=== PATIENT | male | born 1990 | race African-American/Black ===

== ENCOUNTER 2024-02-23 06:19 | Emergency (ER) | payer MEDICAID ==
[~2024-02-23] VITALS: Ht 177.8 cm; Wt 63.5 kg
[2024-02-23 06:42] VITALS: O2SAT 99
[2024-02-23] MEDS: HYDROCODONE/ACETAMINOPHEN 5/325MG TABLET PO ONE (07:15)
[2024-02-23] MEDS ORDERED: HYDR-4001 MT (07:19)
[2024-02-23] MEDS ORDERED: AMOX-494 MT (07:19)
[2024-02-23 08:35] VITALS: BP 130/65; PULSE 82; RESP 16; TEMP 36.83628; O2SAT 99
[2024-02-24] MEDS ORDERED: HYDR-4001 PO (10:35)
== END 2024-02-23 08:45 | disposition home or self-care (01) ==
LOC: ER 06:41
DX: R68.84 Jaw pain (principal); K04.7 Periapical abscess without sinus; J45.909 Unspecified asthma, uncomplicated; Z98.890 Other specified postprocedural states; Z91.018 Allergy to other foods
CPT/HCPCS: 99283